=== PATIENT | female | born 1985 | race Caucasian/White ===

== ENCOUNTER 2018-01-06 18:47 | Emergency (ER) | payer SELFPAY ==
[~2018-01-06] VITALS: Ht 157.5 cm; Wt 57.1 kg
[2018-01-06 19:28] VITALS: Ht 157.5 cm; Wt 57.1 kg
[2018-01-06 22:24] VITALS: BP 96/53
== END 2018-01-06 22:24 | disposition home or self-care (01) ==
LOC: ED 18:47
DX: R11.2 Nausea with vomiting, unspecified (principal); R19.7 Diarrhea, unspecified
CPT/HCPCS: J1885; J7030; Q0162